=== PATIENT | male | born 1945 | race Caucasian/White ===

== ENCOUNTER 2016-12-11 11:19 | Emergency (ER) ==
[2016-12-11 11:29] VITALS: BP 120/79; TEMP 98.1; BMI 36.6
--- NOTE | 2016-12-11 12:07 | ED.PDOC ---
General ED Provider: Dr. MICHA ANDREWS JR Chief Complaint: Fall Stated Complaint: dog circled pt with chain and caused him to trip--was outdoors --struck concrete--no loc--has abrasion to nose and left forehead--abrasion to left knee--has some neck pain--[ End ]98.1 73 20 96% 120/79 3/10 placed in cervical collar upon admit to er--stated neck/shoulders did not start hurting until arrival--alert--able to move all extrremeties well[ End ]30 minutes ago fall bleeding unsure of where- note no injuries except nose left eyebrow and left knee abrasiosn states hit with hands and has tenderness upper shoulder and scapula area without focal tenderness Time Seen by Physician: 12:05 Mode of Arrival: Walk-In Information Source: Patient Exam Limitations: No limitations Primary Care Provider: [facility] Nursing and Triage Documentation Reviewed and Agree: No Review of Systems - Review Of Systems Constitutional: Reports: No symptoms Eyes: Reports: Pain Ears, Nose, Mouth, Throat: Reports: Nose pain Respiratory: Reports: No symptoms Cardiac: Reports: No symptoms GI: Reports: No symptoms : Reports: No symptoms Musculoskeletal: Reports: Joint pain, Muscle pain Skin: Reports: Lesions (abrasions left brow, nose, left knee) Neurological: Reports: No symptoms Endocrine: Reports: No symptoms Hematologic/Lymphatic: Reports: No symptoms All Other Systems: Other Past Medical History - Past Medical History Endocrine: Reports: DM 2, Dyslipidemia Cardiovascular: Reports: DC, Hypertension Respiratory: Reports: None Hematological: Reports: None Gastrointestinal: Reports: GERD ([place]) Genitourinary: Reports: None Neuro/Psych: Reports: None Musculoskeletal: Reports: None Cancer: Reports: None - Surgical History General Surgical History: Reports: None - Family History Family History: Reports: Unknown - Social History Smoking Status: Former smoker Hx Substance Use: No Alcohol Screening: None - Immunizations Tetanus Shot up to Date: No Physical Exam - Physical Exam Appearance: Ill-appearing Ill-appearing: Mild Pain Distress: Mild Eyes: GIOVANNA, EOMI, Conjunctiva clear ENT: Ears normal, Nose normal, Oropharynx normal Neck: Supple Respiratory: Airway patent, Breath sounds clear, Breath sounds equal, Respirations nonlabored Cardiovascular: RRR, Pulses normal, No rub, No murmur GI/: Soft, Nontender, No masses, Bowel sounds normal, No Organomegaly Musculoskeletal: Normal strength, ROM intact, No edema, No calf tenderness Skin: Warm, Dry, Normal color Neurological: Sensation intact, Motor intact, Reflexes intact, Cranial nerves intact, Alert, Oriented Interpretation - Radiology Interpretation Radiology Interpretation By: Radiologist Radiology Results: No acute changes Exam Interpreted: CT Scan (head neck face) Critical Care Note - Critical Care Note Total Time (mins): 5 Course - Course Orders, Labs, Meds: Orders Category Date Time Status Diphth,Pertuss(Acell),Tet Vac [Boostrix] MEDS 12/11/16 13:28 Discontinued 0.5 ml IM .ONCE ONE CT CERVICAL SPINE W/O CONTRAST Stat RADS 12/11/16 12:[address] HEAD W/O CONTRAST Stat RADS 12/11/16 12:[address] MAXILLOFACIAL W/O CONTRAST Stat RADS 12/11/16 12:05 Completed KNEE, LEFT 4 VIEWS Stat RADS 12/11/16 12:23 Completed Medications Discontinued Medications Generic Name Dose Route Start Last Admin Trade Name Freq PRN Reason Stop Dose Admin Diphtheria/Pertussis/Tetanus Vacc 0.5 ml 12/11/16 13:28 12/11/16 13:42 Boostrix IM 12/11/16 13:29 0.5 ml .ONCE ONE Administration Vital Signs: Temp Pulse Resp BP Pulse Ox 12/11/16 11:20 98.1 F 73 20 120/79 96 Departure - Departure Time of Disposition: 13:28 Disposition: HOME SELF-CARE Discharge Problem: Falls, Head injury due to trauma Instructions: Head Injury (ED) Condition: Good Pt referred to PMD for follow-up: Yes Additional Instructions: head injury return if mental changes recurrent bleeding vomiting or headache recheck PMD one week, sooner if not resolved may use antibiotic ointment on abrasions Prescriptions: Hydrocodone Bit/Acetaminophen [[place] 5-325] 1 - 2 tab PO Q6HR PRN #12 tablet PRN Reason: pain Bacitracin 1 applic TP 2-4XD #1 pkg Allergies/Adverse Reactions: Allergies No Known Allergies Allergy (Verified 12/11/16 11:33) Home Medications: Ambulatory Orders Albuterol Sulfate [Proair Hfa] 1 puff INH DAILY PRN 10/19/14 Lisinopril [Zestril] 5 mg PO DAILY 10/19/14 Metformin HCl [Glucophage] 500 mg PO BID 10/19/14 Pantoprazole Sodium [Protonix] 40 mg PO BID 10/19/14 Tamsulosin HCl [Flomax] 0.4 mg PO BID 10/19/14 Carvedilol [Coreg] 3.125 mg PO BID 10/29/15 Furosemide [Lasix] 20 mg PO DAILY 10/29/15 Ticagrelor [Brilinta] 90 mg PO BID 10/29/15 Atorvastatin Calcium [Lipitor] 20 mg PO DAILY 03/23/16 Potassium Chloride [K-Dur] 20 meq PO DAILY 03/23/16 Bacitracin 1 applic TP 2-4XD #1 pkg 12/11/16 Hydrocodone Bit/Acetaminophen [[place] 5-325] 1 - 2 tab PO Q6HR PRN #12 tablet 12/21
--- NOTE | 2016-12-11 13:05 | CT ---
EXAM: CT of the head without contrast History: Head trauma. Technique: Multiplanar CT images through the head were obtained without the administration of IV co ntrast Findings: No air-fluid levels seen within the maxillary sinuses or mastoid air cells. No acute maribell varial abnormalities. Left periorbital edema extending to involve the left frontal scalp. Intracranially there is frontal atrophy. No midline shift. No hydrocephalous. No acute intracrani al hemorrhage. No dominant mass. Impression: 1. No acute intracranial hemorrhage. 2. Frontal atrophy. 3. Left periorbital edema extending to involve the left frontal scalp.
--- NOTE | 2016-12-11 13:05 | DI ---
EXAM: Four views of the left knee. History: Left knee pain and trauma. Findings: No acute fracture or dislocation. Prominent inferior patellar pole. Anterior soft tissu e swelling. Joint spaces are relatively preserved. Impression: No acute osseous abnormality. Anterior soft tissue swelling.
--- NOTE | 2016-12-11 13:06 | CT ---
Exam: CT of the maxillofacial structures without intravenous contrast. Comparison: None available. Reason for exam: Fall with trauma. FINDINGS: No displaced facial fractures are seen. The frontal, ethmoid, maxillary, sphenoid sinuses, and mastoid air cells are unopacified. No displaced facial bone fractures are seen. No discrete air fluid levels. Soft tissue swelling is seen adjacent to the left superior orbit. Partially imaged calvarium appear s intact. Dental amalgam artifact obscures image interpretation in the oropharynx. The partially imaged intracranial structures appear unremarkable. Impression: No displaced facial bone fractures are seen. Report faxed at [id number] hours on 12/11/2016.
--- NOTE | 2016-12-11 13:12 | CT ---
EXAM: CT cervical spine without contrast. HISTORY: Initial presentation for neck injury. COMPARISON: None available. TECHNIQUE: Multiple axial images of the cervical spine were obtained without intravenous contrast. Images were reformatted in the sagittal and coronal planes. FINDINGS: There is straightening of the normal lordosis. Alignment is normal. Loss of disc height noted throughout the cervical spine, severe at C5-6 through C7-T1. Disc osteophyte formation from C4-5 through C7-T1 noted with mild spinal stenosis at C4-5 and C7-T1, and moderate spinal stenosis f rom C5-6 and C6-7. Disc osteophyte formation, uncovertebral hypertrophy and facet arthropathy cause multilevel neural foraminal narrowing, severe at the C3-4 on the right, C4-5 on the right, C5-6 on the left, and C6-7 on the left. No fracture identified. Paravertebral soft tissues are without acu te abnormality. IMPRESSION: No acute abnormality of the cervical spine.
[2016-12-11] MEDS ORDERED: BOOSTRIX IM ONE (13:28)
== END 2016-12-11 13:50 | disposition home or self-care (01) ==
LOC: ED 11:19
DX: S09.90XA Unspecified injury of head, initial encounter (principal); M54.2 Cervicalgia; S80.212A Abrasion, left knee, initial encounter; S00.81XA Abrasion of other part of head, initial encounter; S00.31XA Abrasion of nose, initial encounter; W01.0XXA Fall on same level from slipping, tripping and stumbling without subsequent striking against object, initial encounter
CPT/HCPCS: 90471; 99283

== ENCOUNTER 2017-06-15 13:49 | Outpatient (CLI) ==
--- NOTE | 2017-06-15 14:44 | CT ---
EXAM: CT of the head without contrast History: Head trauma. Comparison: Head CT 12/11/2016 Technique: Multiplanar CT images through the head were obtained without the administration of IV con trast Findings: The visualized paranasal sinuses and mastoid air cells are clear in general. No acute maribell varial abnormalities. Intracranially there is stable frontal atrophy. No dominant mass or midline shift. No hydrocephalous . No acute intracranial hemorrhage or abnormal extraaxial fluid collections. Impression: 1. No acute intracranial process. 2. Stable frontal atrophy.
--- NOTE | 2017-06-15 14:46 | CT ---
EXAM: CT of the cervical spine without contrast History: Head and neck trauma. Comparison: CT cervical spine 12/11/2016 Technique: Multiplanar CT images through the cervical spine were obtained without the administration of IV contrast Findings: The visualized upper lungs are free of consolidation. Visualized airway remains patent. Reversal of the normal cervical lordosis. No prevertebral soft tissue swelling. No acute fracture o r subluxation. No significant interval change in the moderate to severe disc space narrowing at C4-5 , C5-6 and C6-7 with endplate sclerosis and osteophyte formation. No change in the mild to moderate central canal stenosis at C4-5 and C5-6 secondary to posterior disc osteophyte complex No change in t he multilevel bilateral bony neural foraminal narrowing which is severe on the right at C3-4, on the right at C4-5 and bilaterally at C5-6 and C6-7 due to uncovertebral and facet hypertrophy. Impression: No acute osseous abnormality of the cervical spine. Degenerative changes. No change co mpared to the prior study.
--- NOTE | 2017-06-15 15:01 | CT ---
EXAM: CT LUMBAR SPINE HISTORY: Back pain TECHNIQUE: CT lumbar spine without contrast. 3-mm axial sections. Coronal and sagittal reformation s. COMPARISON: No comparison appear FINDINGS: Bones appear significantly demineralized. There is no fracture or loss of vertebral body height. No spondylolisthesis. Sacroiliac joints are intact. Diffuse degenerative disc and facet disease is mo derately severe. This is most apparent at L2/L3 and L4/L5 where there is at least moderate central c anal stenosis and bilateral neural foraminal narrowing. Paraspinal soft tissues reveal no fluid dee dee ections. Incidental findings include atherosclerotic disease and nonspecific bilateral perinephric f at stranding. IMPRESSION: 1. Diffuse degenerative disc and facet disease most apparent at L2/L3 and L4/L5 where there is at le ast moderate central canal stenosis and bilateral neural foraminal narrowing. Correlation with MRI c an be made if indicated. No acute fracture or spondylolisthesis. 2. Generalized demineralization.
== END 2017-06-15 13:50 | disposition home or self-care (01) ==
LOC: RAD 13:49
PROVIDERS: ATTEND Family Medicine
DX: M54.2 Cervicalgia (principal); M54.5 Low back pain; S09.90XA Unspecified injury of head, initial encounter; W19.XXXD Unspecified fall, subsequent encounter